=== PATIENT | male | born 1995 | race Caucasian/White ===

== ENCOUNTER 2017-12-26 10:45 | Emergency (ER) | payer MEDICAID ==
[~2017-12-26] VITALS: Ht 175.3 cm; Wt 70.9 kg
[2017-12-26 10:55] VITALS: BP 132/58
--- NOTE | 2017-12-26 10:55 | NUR ---
PT AMB W/O ASST TO ER BED 12
--- NOTE | 2017-12-26 11:01 | NUR ---
PT BIB SELF C/O LT ANKLE PAIN S/P MEC FALL-NO LOC/KO, PAIN 6/10, CAP REFILL-IMM, SLIGHT GAIT STEADY WITH A SLIGHT LIMP NOTED TO LT SIDE. PT DENIES N/V/D; SKIN IS INTACT, PINK/WARM/DRY; AAOX4, PERRL; LUNGS CLEAR BL, BREATHING UNLABORED; HR EVEN AND REGULAR, BL PERIPHERAL PULSES PRESENT; BS ACTIVE X4, NO TENDERNESS TO PALPATION. PT DENIES ANY FEVER, CP, SOB, OR COUGH AT THIS TIME; PT STATES 6/10 PAIN AT THIS TIME; VSS; PATIENT POSITIONED FOR COMFORT; HOB ELEVATED; BEDRAILS UP X2; BED DOWN.
--- NOTE | 2017-12-26 11:11 | NUR ---
PT BACK FROM XRAY VIA W/C AAOX4
[2017-12-26] MEDS ORDERED: KETOROLAC 60 MG/2 ML VIAL IM ONE (11:25)
--- NOTE | 2017-12-26 11:50 | NUR ---
MAHNAZ EMT IN ROOM PLACING SPLINT.
[2017-12-26 12:05] VITALS: BP 132/58
--- NOTE | 2017-12-26 12:05 | NUR ---
Patient discharged with v/s stable. Written and verbal after care instructions given and explained. Patient alert, oriented and verbalized understanding of instructions. Ambulatory with steady gait VIA CRUTCHES . All questions addressed prior to discharge. ID band removed. Patient advised to follow up with PMD. Rx of MOTRIN 800MG given. Patient educated on indication of medication including possible reaction and side effects. Opportunity to ask questions provided and answered.
== END 2017-12-26 12:05 | disposition home or self-care (01) ==
LOC: MED 10:45
DX: S92.812A Other fracture of left foot, initial encounter for closed fracture (principal); W18.49XA Other slipping, tripping and stumbling without falling, initial encounter; Y93.89 Activity, other specified; Y92.89 Other specified places as the place of occurrence of the external cause; Y99.8 Other external cause status
CPT/HCPCS: 29515; 73610; 96372; 99284; J1885

== ENCOUNTER 2019-11-16 11:16 | Emergency (ER) | payer SELFPAY ==
[~2019-11-16] VITALS: Ht 177.8 cm; Wt 73.9 kg
[2019-11-16 11:23] VITALS: BP 121/76
[2019-11-16 12:10] LABS: APPEARANCE,URINE CLEAR (CLEAR); BILIRUBIN,URINE NEGATIVE (NEGATIVE); BLOOD, URINE NEGATIVE (NEGATIVE); COLOR,URINE YELLOW (YELLOW); LEUKOCYTE ESTERASE ,URINE 1+ (NEGATIVE); NITRITE, URINE NEGATIVE (NEGATIVE); UGLUCOSE NEGATIVE (NEGATIVE)
[2019-11-16 12:21] LABS: RBC,URINE 0-5 /HPF (0-5); WBC,URINE 16-25 (MOD) /HPF (0-5)
[2019-11-16] MEDS ORDERED: cefTRIAXone 250 MG in LIDOCAINE MPF 1% 0.9 ML IM ONE (13:00)
[2019-11-16] MEDS ORDERED: AZITHROMYCIN 250 MG TAB PO ONE (13:00)
[2019-11-16] MEDS ORDERED: LIDOCAINE MPF 1% 5 ML ONE (13:04)
[2019-11-16] MEDS ORDERED: cefTRIAXone 250 MG VIAL ONE (13:04)
[2019-11-16 13:52] VITALS: BP 121/76
[2019-11-20 06:07] LABS: CHLAMYDIA TRACHOMATIS AMP DNA Negative (Negative)
== END 2019-11-16 13:53 | disposition home or self-care (01) ==
LOC: MED 11:16
DX: A63.8 Other specified predominantly sexually transmitted diseases (principal); F17.210 Nicotine dependence, cigarettes, uncomplicated; F12.10 Cannabis abuse, uncomplicated
CPT/HCPCS: 36415; 81001; 87086; 96372; 99283; J0696; J2001

== ENCOUNTER 2023-05-20 12:39 | Emergency (ER) | payer SELFPAY ==
[~2023-05-20] VITALS: Ht 177.8 cm; Wt 78.5 kg
[2023-05-20 12:45] VITALS: BP 136/74; PULSE 63; RESP 18; TEMP 97.7; O2SAT 100
[2023-05-20] MEDS ORDERED: IBUP-2213 PO (13:34)
[2023-05-20] MEDS ORDERED: SULF-59 PO (13:34)
== END 2023-05-20 13:43 | disposition home or self-care (01) ==
LOC: MED 12:39
DX: L02.212 Cutaneous abscess of back [any part, except buttock and flank] (principal); Z79.899 Other long term (current) drug therapy; Z98.890 Other specified postprocedural states
CPT/HCPCS: 99283